=== PATIENT | female | born 1950 | race Caucasian/White ===

== ENCOUNTER → 2017-06-29 | Outpatient (CLI) | payer OTHER ==
[~2017-06-29] MED LIST: ASPI81TA21 PO; CALCTAB7 PO; LEVOTHYROXINE; LISI-461 PO; PRAV20TA PO; SOLI5TAB2 PO; TAMO20TA47 PO; XNX25 PO
--- NOTE | 2017-06-30 13:22 | MAMMOGRAPHY REPORT ---
BILATERAL DIGITAL SCREENING MAMMOGRAM 3D/2D WITH CAD: 06/29/2017 CLINICAL HISTORY: Routine screening. Patient has no complaints. TECHNIQUE: Breast tomosynthesis in addition to standard 2D mammography was performed. Current study was also evaluated with a Computer Aided Detection (CAD) system. COMPARISON: Comparison is made to exams dated: 06/26/2016 mammogram, 06/20/2015 mammogram, 06/19/2014 m ammogram, 06/09/2013 mammogram, 12/03/2012 mammogram, and 02/24/2012 mammogram - [facility]. BREAST COMPOSITION: The tissue of both breasts is heterogeneously dense, which may obscure small mas ses. FINDINGS: There are stable posttreatment changes in the left breast. A few punctate benign-appearing microcalcifications bilaterally, and a stable oval circumscribed mass in the superior left breast is unchanged in size and appearance dating back to at least 12/20/2008, therefore likely benign. No ne w suspicious mass, architectural distortion or cluster of microcalcifications is seen. ACR BI-RADS CATEGORY 1: NEGATIVE There is no mammographic evidence of malignancy. A 1 year screening mammogram is recommended. The pa tient will receive written notification of the results. Approximately 10% of breast cancers are not detected with mammography. A negative mammographic report should not delay biopsy if a clinically suggestive mass is present. Pat Rushing M.D. ay/:06/29/2017 16:49:57 Assistant Basketball Coach: Cristy MCCORMACK(Aleyda)(Ellis)([place]), [facility] letter sent: Normal 1/2 BI-RADS Code: ACR BI-RADS Category 1: Negative
== END | disposition home or self-care (01) ==
LOC: C.MAMM 16:13
PROVIDERS: ATTEND Family Medicine
DX: Z12.31 Encounter for screening mammogram for malignant neoplasm of breast (principal)